=== PATIENT | male | born 1975 | race Caucasian/White ===

== ENCOUNTER → 2024-10-28 10:26 | Outpatient (BNVA) | payer OTHER, SELFPAY | PROVIDERS: PCP Family Medicine; Referring Provider Family Medicine; Visit Provider Surgery | DX: Z12.11 Encounter for screening for malignant neoplasm of colon (principal); K21.9 Gastro-esophageal reflux disease without esophagitis | CPT/HCPCS: 99203 ==

== ENCOUNTER 2024-11-19 05:31 | Day surgery (SDC) | payer OTHER, SELFPAY ==
[2024-11-19 06:04] VITALS: BP 131/86; PULSE 60; RESP 16; TEMP 36.2; O2SAT 99; BMI 28.8
[2024-11-19] MEDS: sodium chloride 0.9% 1,000 ML 15 ML IV (06:29)
--- NOTE | 2024-11-19 06:46 | P.HPUD_ITS ---
Surgery/Procedure H&P Update DATE OF PROCEDURE: November 19, 2024 DATE H&P PERFORMED: 10/28/24 H&P UPDATE INFORMATION: I have reviewed H&P completed within last 30 days, I have examined patient prior to procedure, No changes to prior documentation, H&P is in [facility] EMR on date indicated and Risks and benefits of the procedure reviewed PLANNED PROCEDURE: Operation Date: 11/19/24 07:15 Proposed Procedures p EGD [id number] G0121 K21.9 Z12.11(Not Applicable) - Doe Polanco MD s Colonoscopy(Not Applicable) - Doe Polanco MD
--- NOTE | 2024-11-19 07:08 | ANES.PREANE2 ---
Pre-Anesthetic Assessment Height/Weight: Height 1.75 m Weight 88.451 kg Temp Pulse Resp BP Pulse Ox O2 Del Method 97.2 F L 60 16 131/86 99 Room Air 11/19/24 06:04 11/19/24 06:04 11/19/24 06:04 11/19/24 06:04 11/19/24 06:04 11/19/24 06:04 Preop Diagnosis: screening Operation Date: 11/19/24 07:15 Proposed Procedures p EGD [id number] G0121 K21.9 Z12.11(Not Applicable) - Doe Polanco MD s Colonoscopy(Not Applicable) - Doe Polanco MD Familial anesthetic complications: PONV Was Beta Lisa taken within 24 hours: N/A Was Clonidine taken within 24 hours: N/A Last intake: Intake Last Liquid Date 11/18/24 Last Liquid Time 19:00 Last Solid Date 11/17/24 Last Solid Time 19:00 Social Alcohol (1drink per day) and No tobacco Exam alert and oriented x 3 Airway Submandibular: within normal limits Cervical ROM: within normal limits Mallampati: Class II Dentition: full Pulmonary None reported CV/HEM None reported None reported Hepatic None reported GI Gastroesophageal Reflux Disease Metabolic None reported Musc/skel None reported Neuropsych None reported Anesthetic Plan ASA status: 2 Anesthesia: Anesthesia Evaluation and MAC Medications/Allergies Home Medications ?Medication ?Instructions ?Recorded ?Confirmed ?Last Taken ?Type esomeprazole magnesium 20 mg 20 mg PO DAILY 10/28/24 11/19/24 11/18/24 History capsule,delayed release (Nexium 24HR) Allergies Allergy/AdvReac Type Severity Reaction Status Date / Time No Known Allergies Allergy Verified 11/17/24 08:30 Current Medications Generic Name Dose Route Start Last Admin Trade Name Freq PRN Reason Stop Dose Admin Sodium Chloride 1,000 mls @ 15 mls/hr 11/19/24 05:41 11/19/24 06:29 Sodium Chloride 0.9% IV 11/20/24 05:40 15 mls/hr .Q24H PRN Administration COLONOSCOPY FLUIDS PFSH Anesthesia Medical History COVID-19 vaccine series completed [facility] Otitis externa Social History Smoking and tobacco/nicotine status: never used tobacco/nicotine
[2024-11-19 07:46] VITALS: BP 107/61; PULSE 67; RESP 18; TEMP 36.4; O2SAT 94
--- NOTE | 2024-11-19 07:47 | ANE.PACU2 ---
Inpatient post-anesthesia follow up: Airway intact: Yes Vital signs: Temperature 97.2 F Pulse Rate 60 Respiratory Rate 16 Blood Pressure 131/86 Pulse Oximetry 99 Oxygen Delivery Me thod Room Air Oxygen Flow Rate Fraction of Inspir ed Oxygen Hydration adequate: Yes Nausea and vomiting: No Pain level: 1 Mental status: Baseline
[2024-11-19 08:01] VITALS: BP 112/71; PULSE 57; RESP 18; O2SAT 95
== END 2024-11-19 08:30 | disposition home or self-care (01) ==
PROVIDERS: PCP Family Medicine; Visit Provider Surgery
PROC: 0DJ08ZZ Inspection of Upper Intestinal Tract, Via Natural or Artificial Opening Endoscopic (ICD-10-PCS; principal; 2024-11-19 07:15)
PROC: 0DJD8ZZ Inspection of Lower Intestinal Tract, Via Natural or Artificial Opening Endoscopic (ICD-10-PCS; CPT 45378; 2024-11-19 07:15)
DX: Z12.11 Encounter for screening for malignant neoplasm of colon (principal); K21.00 Gastro-esophageal reflux disease with esophagitis, without bleeding; D12.2 Benign neoplasm of ascending colon
CPT/HCPCS: 43239; 45380; 88305; J2704; J3490; J7030; J9999